=== PATIENT | female | born 2005 | race Caucasian/White ===

== ENCOUNTER 2025-05-17 22:25 | Emergency (ER) | payer OTHER, BC, MEDICAID ==
[~2025-05-17] VITALS: Ht 170.2 cm; Wt 104.0 kg
[2025-05-17 22:42] VITALS: O2SAT 98
[2025-05-17] MEDS ORDERED: IBUP-1455 MT (23:16)
[2025-05-17] MEDS: IBUPROFEN 600MG TABLET PO ONE (23:26)
[2025-05-17 23:27] VITALS: BP 123/71; PULSE 75; RESP 16; TEMP 37.2; O2SAT 100
== END 2025-05-17 23:30 | disposition home or self-care (01) ==
LOC: ER 22:25
DX: M54.50 Low back pain, unspecified (principal); M54.2 Cervicalgia; V49.40XA Driver injured in collision with unspecified motor vehicles in traffic accident, initial encounter; Y93.89 Activity, other specified; Y92.89 Other specified places as the place of occurrence of the external cause; Y99.8 Other external cause status
CPT/HCPCS: 99283